=== PATIENT | male | born 1985 | race Caucasian/White ===

== ENCOUNTER 2018-01-30 13:09 | Inpatient (IN) | payer OTHER ==
--- NOTE | 2018-01-30 13:54 | ED ---
General Adult HPI - General Chief complaint: Psychiatric Symptoms Stated complaint: Mental health Time Seen by Provider: 01/30/18 13:10 Source: patient, RN notes reviewed Mode of arrival: ambulatory Limitations: no limitations - History of Present Illness Initial comments: This is a 32-year-old male who presents to the emergency department in the custody of police. Patient was petition by [facility] the [facility] and sent to the emergency department for further evaluation. Patient states she's not homicidal or suicidal. Patient states she doesn't know why is here. Patient does admit to hearing voices but he does not the voices say. Patient denies any visual hallucinations. Patient states he has been standing around noon in the cell and not eating but he doesn't know why. Patient does not know why he is in [facility]. Patient states she's been diagnosed with schizophrenia and bipolar but is never followed up to take any medications. Patient denies any recent drug use. When I asked the patient why he is in the emergency department patient states he is here to get his handcuffs off. Patient denies any physical complaints. - Related Data Home Medications Medication Instructions Recorded Confirmed No Known Home Medications 01/30/18 01/30/18 Allergies Allergy/AdvReac Type Severity Reaction Status Date / Time No Known Allergies Allergy Verified 01/30/18 14:21 Review of Systems ROS Statement: Those systems with pertinent positive or pertinent negative responses have been documented in the HPI. ROS Other: All systems not noted in ROS Statement are negative. Past Medical History Past Medical History: No Reported History History of Any Multi-Drug Resistant Organisms: None Reported Past Surgical History: No Surgical Hx Reported Past Psychological History: No Psychological Hx Reported, Bipolar, Schizophrenia Smoking Status: Never smoker Past Alcohol Use History: None Reported Past Drug Use History: Marijuana General Exam - General Exam Comments Initial Comments: GENERAL: Patient is well-developed and well-nourished. Patient is nontoxic and well- hydrated and is in no acute distress. ENT: Neck is soft and supple. No significant lymphadenopathy is noted. Oropharynx is clear. Moist mucous membranes. EYES: The sclera were anicteric and conjunctiva were pink and moist. Extraocular movements were intact and pupils were equal round and reactive to light. Eyelids were unremarkable. PULMONARY: Unlabored respirations. Good breath sounds bilaterally. No audible rales rhonchi or wheezing was noted. CARDIOVASCULAR: There is a regular rate and rhythm without any murmurs gallops or rubs. ABDOMEN: Soft and nontender with normal bowel sounds. SKIN: Skin is clear with no lesions or rashes and otherwise unremarkable. NEUROLOGIC: Patient is alert and oriented 2. Cranial nerves II through XII are grossly intact. Motor and sensory are also intact. Normal speech, volume and content. Symmetrical smile. MUSCULOSKELETAL: Normal extremities with adequate strength and full range of motion. No lower extremity swelling or edema. No calf tenderness. LYMPHATICS: No significant lymphadenopathy is noted PSYCHIATRIC: Patient states he hears voices but he doesn't with her saying. Patient denies suicidal or homicidal ideations. Patient states he has been standing running a cell make it but doesn't apply. Patient states he also has not been eating and he doesn't know why. Patient does know why is here. Patient states he doesn't otherwise in [facility]. Limitations: no limitations Course Vital Signs 01/30/18 13:16 Temperature 98.3 F Pulse Rate 83 Respiratory 18 Rate Blood Pressure 160/83 O2 Sat by Pulse 100 Oximetry Medical Decision Making - Medical Decision Making I filled out a clinical certification for the patient's admission. Disposition Clinical Impression: Acute psychosis Disposition: TRANSFER TO PSYCH HOSP/UNIT Referrals: None,Stated [Primary Care Provider] - 1-2 days Time of Disposition: 16:58
[2018-01-30 23:26] LABS: Amphetamine Screen,Urine Not Detected (NotDetected); Barbiturate Screen,Urine Not Detected (NotDetected); Benzodiazepines Screen,Urine Not Detected (NotDetected); Cocaine Screen,Urine Not Detected (NotDetected); Methadone Screen, Urine Not Detected (NotDetected); Opiate Screen,Urine Not Detected (NotDetected); Oxycodone Screen, Urine Not Detected (NotDetected); Phencyclidine Screen,Urine Not Detected (NotDetected); Tricyclic Antidepressant,Urine Not Detected (NotDetected); Urn Cannabinoid Scrn Not Detected (NotDetected)
[2018-01-31] MEDS ORDERED: LORazepam 2 MG/ML INJ IM STA (11:45)
[2018-01-31] MEDS ORDERED: ZIPRASIDONE 20 MG VIAL IM STA (12:05)
[2018-01-31] MEDS ORDERED: MAGNESIUM HYDROXIDE 2,400 MG/10 ML CUP PO PRN (13:00)
[2018-01-31] MEDS ORDERED: MAG HYDROX/AL HYDROX/SIMETH 30 ML CUP PO PRN (13:00)
[2018-01-31] MEDS ORDERED: ACETAMINOPHEN TAB 325 MG TAB PO PRN (13:00)
[2018-01-31] MEDS ORDERED: HALOPERIDOL LACTATE 5 MG/ML 1 ML VIAL IM PRN (13:04)
[2018-01-31] MEDS ORDERED: LORazepam 2 MG/ML INJ IM PRN (13:07)
[2018-01-31] MEDS: NICOTINE 14MG/24HR PATCH TRANSDERM SCH (14:01)
[2018-02-01] MEDS: NICOTINE 14MG/24HR PATCH TRANSDERM SCH (09:25)
--- NOTE | 2018-02-01 11:01 | P.PN ---
Progress Note - Text Progress Note Date: 02/01/18 Patient was attempted to be seen yesterday and today. Patient was highly combative in the Emergency Department and required anti-psychotics and sedatives. As per nursing reports, patient was combative and armando towards staff this morning, requiring to be placed back on sedatives and anti- psychotics. He was unable to be seen at that time due to his mentation. Nursing staff has been advised to call us back when the patient is more alert and oriented so we can re-attempt to see him.
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
[2018-02-01] MEDS: HALOPERIDOL 5 MG TAB PO PRN ×2 (13:37→19:51)
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
[2018-02-01] MEDS: LORazepam 1 MG TAB PO PRN (19:51)
[2018-02-02] MEDS: NICOTINE 14MG/24HR PATCH TRANSDERM SCH (07:49)
[2018-02-02] MEDS: HALOPERIDOL 5 MG TAB PO PRN ×2 (07:50→21:26)
[2018-02-02] MEDS: LORazepam 1 MG TAB PO PRN ×2 (07:50→21:26)
[2018-02-02] MEDS: BENZTROPINE MESYLATE 1 MG TAB PO PRN (07:50)
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
[2018-02-02 11:23] LABS: Basophils # (A) 0.1 k/uL (0-0.2); Basophils % (A) 1 %; Eosinophils # (A) 0.1 k/uL (0-0.7); Eosinophils % (A) 2 %; HCT 46.2 % (39.0-53.0); HGB 15.1 gm/dL (13.0-17.5); Lymphocytes # (A) 1.6 k/uL (1.0-4.8); Lymphocytes % (A) 30 %; MCH 29.2 pg (25.0-35.0); MCHC 32.6 g/dL (31.0-37.0); MCV 89.4 fL (80.0-100.0); Monocytes # (A) 0.4 k/uL (0-1.0); Monocytes % (A) 8 %; Neutrophils # (A) 2.9 k/uL (1.3-7.7); Neutrophils % (A) 57 %; Platelet Count 153 k/uL (150-450); RBC 5.17 m/uL (4.30-5.90); RDW 12.1 % (11.5-15.5); WBC 5.2 k/uL (3.8-10.6)
[2018-02-02 11:48] LABS: ALT 26 U/L (21-72); AST 34 U/L (17-59); Albumin 4.4 g/dL (3.5-5.0); Alkaline Phosphatase 58 U/L (38-126); Anion Gap 10 mmol/L; Bilirubin,Unconjugated 1.4 mg/dL (0.0-1.1); Blood Urea Nitrogen 22 mg/dL (9-20); Calcium 9.5 mg/dL (8.4-10.2); Carbon Dioxide 29 mmol/L (22-30); Chloride 101 mmol/L (98-107); Cholesterol 144 mg/dL (<200); Glucose 112 mg/dL (74-99); HDL Cholesterol 28 mg/dL (40-60); LDL Cholesterol,Calculated 101 mg/dL (0-99); Potassium 4.4 mmol/L (3.5-5.1); Sodium 140 mmol/L (137-145); Total Bilirubin 1.4 mg/dL (0.2-1.3); Total Protein 7.1 g/dL (6.3-8.2); Triglycerides 76 mg/dL (<150)
[2018-02-02 20:49] LABS: Hemoglobin A1C 5.3 % (4.0-6.0)
[2018-02-03] MEDS: NICOTINE 14MG/24HR PATCH TRANSDERM SCH (08:25)
[2018-02-03] MEDS: BENZTROPINE MESYLATE 1 MG TAB PO PRN (09:50)
[2018-02-03] MEDS: HALOPERIDOL 5 MG TAB PO PRN ×2 (09:50→20:27)
[2018-02-03] MEDS: LORazepam 1 MG TAB PO PRN ×2 (09:50→20:27)
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
[2018-02-04] MEDS: NICOTINE 14MG/24HR PATCH TRANSDERM SCH (07:51)
[2018-02-04 15:02] LABS: Appearance,Urine Clear (Clear); Bilirubin,Urine Negative (Negative); Blood,Urine Negative (Negative); Color,Urine Light Yellow; Glucose,Urine (UA) Negative (Negative); Ketones,Urine Negative (Negative); Leukocyte Esterase,Urine Negative (Negative); Nitrite,Urine Negative (Negative); Protein,Urine Negative (Negative); Specific Gravity,Urine 1.007 (1.001-1.035); Urobilinogen,Urine <2.0 mg/dL (<2.0)
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
[2018-02-04] MEDS: LORazepam 1 MG TAB PO PRN (21:42)
[2018-02-04] MEDS: HALOPERIDOL 5 MG TAB PO PRN (21:43)
[2018-02-04 21:46] VITALS: RESP 16
[2018-02-05] MEDS: NICOTINE 14MG/24HR PATCH TRANSDERM SCH (08:13)
[2018-02-05] MEDS: LORazepam 1 MG TAB PO PRN (08:42)
[2018-02-05] MEDS: HALOPERIDOL 5 MG TAB PO PRN (08:42)
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
[2018-02-05] MEDS: ARIPiprazole 15 MG TAB PO SCH (12:32)
[2018-02-05] MEDS ORDERED: PALIPERIDONE 6 MG TAB.ER.24 PO SCH (21:00)
[2018-02-06 06:39] VITALS: TEMP 98.1
--- NOTE | 2018-02-06 09:37 | P.PN ---
Progress Note - Text Interval history: The patient is found in the self lounge reading a book. Upon approach he states his mood is okay. He describes his mood is being anxious at times as well. He reports sleeping 8 hours last night. He states he's been eating and attending groups. He is not able to describe the content of any of the groups other than he painted. He reports a conversation with his mother via phone today that was brief. He inquires when he will be discharged. He states he is aware that he will return to retirement. He is not sure what he is charged with when his court date is etc. We reviewed his psychotropic medication. Abilify was initiated yesterday 15 mg daily. He has no questions or concerns regarding that medication. Mental status exam: The patient is a tall male appearing his stated age. Hygiene is adequate he has a disheveled appearance he is dressed in his own clothing. Eye contact is staring in nature. He has very little facial expression. He continues to demonstrate some thought blocking. There are unusual delays with regard to him responding to my questions. He provides ambiguous answers. He is reporting no thoughts of harming himself or others. He is endorsing no auditory or visual hallucinations but states that they were occurring several days ago. He reports feeling safe in the hospital. He endorses no the delusions that we described today. He may be underreporting. He demonstrates no pressured speech. Speech is usually reactive to my questions and not spontaneous. In discussing his legal situation further he demonstrates poverty of thought. He demonstrates no verbal or physical aggressiveness. He demonstrates no involuntary repetitive movements. He is oriented to person place month and year. Plan: The patient will continue on the Abilify 15 mg daily we will consider titrating that further. Continue on the Haldol and Ativan as needed for any agitated behavior. We will continue to provide reality orientation when possible. He is encouraged to continue participating in the milieu and we will continue monitoring him for safety. Vital signs reviewed. We will continue involving his family in treatment and discharge planning as he will allow.
[2018-02-06] MEDS: ARIPiprazole 15 MG TAB PO SCH (10:32)
[2018-02-06] MEDS: NICOTINE 14MG/24HR PATCH TRANSDERM SCH ×2 (10:33→10:54)
[2018-02-07] MEDS: ARIPiprazole 15 MG TAB PO SCH (08:24)
[2018-02-07] MEDS: NICOTINE 14MG/24HR PATCH TRANSDERM SCH (08:45)
--- NOTE | 2018-02-07 09:41 | P.PN ---
Progress Note - Text Interval history: The patient is found in his room he follows me to an interview room. He indicates his mood is "alright". He has no questions or concerns regarding his medication he has been compliant with the Abilify. It does not appear that he required any injections for behavior in the last 24 hours. He indicates he slept well staff recorded 6 hours. Appetite is stable. He reports feeling stressed regarding possible legal charges and is asking us to help provide information. He states he had supportive phone calls from his ex-girlfriend and his mother. Mental status exam: The patient is alert he seated calmly in the chair. He has no spontaneous speech he is becoming more interactive each day. There is still a delay in answering questions but this processing speed seems to be improving. Thought blocking appears to be improving. He is endorsing no auditory or visual hallucinations. He does not appear distracted during the interview. He reports no suicidal or homicidal ideation intent or plan. He demonstrates no verbal or physical aggressiveness. With use of humor he demonstrates brief smiling but otherwise maintains a bland affect. He demonstrates no involuntary repetitive movements. Plan: The patient will continue on the Abilify I will titrate the dose to 20 mg daily. He is demonstrating clinical improvement but would benefit from further hospitalization to approximate to his baseline. We discussed some of his past history again and he does recall having auditory hallucinations at least once at age 21. He does not recall any family history of psychosis. Vital signs reviewed. We will continue to monitor him for safety and encourage his participation in the milieu.
[2018-02-08] MEDS: NICOTINE 14MG/24HR PATCH TRANSDERM SCH (08:36)
--- NOTE | 2018-02-08 09:08 | P.PN ---
Progress Note - Text Interval history: The patient is found in the hallway he follows me to an interview room. He indicates that his mood is okay. He describes feelings of anxiety around others and especially in thinking about his current legal situation. He states he slept last night appetite stable he has been showering. He states in the recent past he notices that his baseline seems to be lower than what previously was. We discussed the several changes he's made occupationally and the termination of the relationship with his girlfriend. He continues to state goes her right decisions for him. 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 He is reporting no auditory or visual hallucinations. He does still feel that there is some confusion at times. He has no questions or concerns regarding the Abilify he is perceiving no side effect. Mental status exam: The patient is alert he is dressed in a T-shirt and sweatpants. He has just showered his hair is disheveled. Eye contact is staring in nature. He is beginning to demonstrate more range of affect. He indicates feeling anxious at times. Thought blocking still present but improving. The delays in responding to questions are reducing. He still seems to lack some insight into his current situation and his recent decisions. Judgment on the unit has improved as he is taking medication and demonstrating no aggressive behavior. He demonstrates no verbal or physical aggressiveness during this session. He demonstrates no involuntary repetitive movements. For the most part he responds to questions asked not having much spontaneous speech. Plan: The patient is slowly improving. I do not feel that he is yet at his baseline. He is anticipating visits from his family over the weekend and we will look further input regarding his status at the time. The Abilify was just titrated to 20 mg today. We will allow that dose to demonstrate further efficacy. He is encouraged to continue participating in the milieu. Depending on his progress moving forward he may be appropriate for discharge as soon as Monday.
[2018-02-09 06:38] VITALS: BP 137/72; PULSE 72
--- NOTE | 2018-02-09 11:06 | P.PN ---
Progress Note - Text Interval history: The patient is found in the hallway he follows me to an interview room. He reports his moods are okay. He continues to speak with family via phone and finds that supportive he anticipates their visit over the weekend. He has no questions or concerns regarding the Abilify. He endorses no side effect. He has been attending groups he has been attending to his ADLs. Mental status exam: The patient is alert he is mildly disheveled is dressed in his own clothing hygiene is adequate. Eye contact is staring in nature. Again he slowly is demonstrating improved expression of affect. He is slowly becoming more interactive. He reports no suicidal or homicidal ideation intent or plan he is reporting no auditory or visual hallucinations or any specific delusions. He demonstrates no involuntary repetitive movements he demonstrates no verbal or physical aggressiveness. Insight and judgment slowly improving. He does still demonstrate a delay in answering questions at times. Plan: The patient is slowly clinically improving. We will continue his Abilify at its current dose. We will continue to assess him for safety. I anticipate discharging him Monday if appropriate.
--- NOTE | 2018-02-10 08:26 | P.PN ---
Progress Note - Text Interval history: The patient is found in the hallway he follows me to an interview room. He indicates his mood is good. He is looking forward to a visit from family this evening. Sleep appetite and energy are stable. He feels his thinking is becoming more clear each day. He has no questions or concerns regarding the Abilify. He indicates having no side effects from it. He has been participating in groups have been no behavioral disturbances. Mental status exam: The patient is alert he is dressed in his own clothing hygiene grooming improved. Eye contact is good speech is fluent spontaneous nonpressured. He reports no suicidal or homicidal ideation intent or plan. He reports no auditory or visual hallucinations or any specific delusions. Evidence of thought blocking is fading. He is more interactive in the conversation and there is almost no delay in providing responses to questions. He demonstrates no involuntary repetitive movements. He demonstrates no verbal or physical aggressiveness. Insight and judgment improving. Plan: The patient is clinically stabilizing we will continue to monitor him for safety. He will continue on the Abilify is written. I anticipate he will be appropriate for discharge as soon as Monday.
[2018-02-10 12:35] VITALS: BMI 23.3
--- NOTE | 2018-02-11 07:50 | P.PN ---
Progress Note - Text Interval history: The patient is found in his room he follows me to an interview room. He indicates he is doing fine. He is looking forward to being discharged. He reports he is attending groups. He indicates he sleeping at night staff recorded he slept at least 6 hours. Appetite is stable. He's been maintaining his own ADLs. He has no questions regarding the Abilify he is reporting no side effect. He had a visit from his parents last evening that he felt was supportive. Mental status exam: The patient is alert he is dressed in his own clothing hygiene is adequate grooming is adequate. Eye contact is good speech is fluent nonpressured. He continues to respond to questions with not as much spontaneous speech. He is demonstrating an improved range of affect during the conversation he is able to respond to humor probes as expected. He reports no suicidal or homicidal ideation intent or plan. He reports no auditory or visual hallucinations or any specific delusions. He does not appear distracted during the interview. Insight and judgment are improving. He demonstrates no involuntary repetitive movements. He demonstrates no verbal or physical aggressiveness. Plan: The patient will continue on the Abilify 20 mg daily. He is clinically stabilizing. We will anticipate discharging him tomorrow. Vital signs reviewed. He is encouraged to continue fully participating in the milieu.
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
== END 2018-02-12 15:14 | DRG 885 ==
LOC: EC 13:09 → 3MHU 01-31 12:53
PROVIDERS: ADMIT Psychiatry & Neurology Psychiatry; ATTEND Psychiatry & Neurology Psychiatry
DX: F20.9 Schizophrenia, unspecified (principal); F41.9 Anxiety disorder, unspecified; Z79.899 Other long term (current) drug therapy; Z91.5 Personal history of self-harm; Z81.8 Family history of other mental and behavioral disorders; Z81.1 Family history of alcohol abuse and dependence; F10.10 Alcohol abuse, uncomplicated
CPT/HCPCS: 80053; 80061; 80306; 81003; 82075; 82248; 83036; 84443; 85025; 99285

== ENCOUNTER 2018-04-25 12:50 | Emergency (ER) | payer OTHER ==
[2018-04-25 13:00] VITALS: TEMP 99
--- NOTE | 2018-04-25 13:10 | ED ---
General Adult HPI - General Chief complaint: Psychiatric Symptoms Stated complaint: Mental Health Court Ordered Time Seen by Provider: 04/25/18 13:02 Source: patient, police Mode of arrival: ambulatory Limitations: no limitations - History of Present Illness Initial comments: Dictation was produced using [employer] dictation software. please excuse any grammatical, word or spelling errors. Chief Complaint: 32-year-old male brought in by law enforcement for admission to [facility]. History of Present Illness: Patient is 32-year-old male. He states he's been hearing voices. Patient does not remember what the voices have been telling him. Since within the last 90 days his symptoms began. There is a court order that was placed for patient admitted to [facility]. Spelled by law enforcement to the emergency department for medical clearance first. Patient has no other complaints at this time. Denies any suicidal or homicidal ideation. The ROS documented in this emergency department record has been reviewed and confirmed by me. Those systems with pertinent positive or negative responses have been documented in the HPI. All other systems are other negative and/or noncontributory. PHYSICAL EXAM: General Impression: Alert and oriented x3, not in acute distress HEENT: Normocephalic atraumatic, extra-ocular movements intact, pupils equal and reactive to light bilaterally, mucous membranes moist. Cardiovascular: Heart regular rate and rhythm, S1&S2 audible, no murmurs, rubs or gallops Chest: Lungs clear to auscultation bilaterally, no rhonchi, no wheeze, no rales Abdomen: Bowel sounds present, abdomen soft, non-tender, non-distended, no organomegaly Musculoskeletal: Pulses present and equal in all extremities, no peripheral edema Motor: Power 5/5 bilaterally, no focal deficits noted Neurological: CN II-XII grossly intact, no focal motor or sensory deficits noted Skin: Intact with no visualized rashes Psych: Flattened affect ED course: 32-year-old male presents with psychotic behavior. Vital signs upon arrival are within acceptable limits. Patient has no complaints at this time. Physical examination is benign. Patient medically cleared for EPS evaluation. EPS clear patient for disposition back to [facility] facility. Patient clear for discharge back to [facility] facility. She has stable psychiatric symptoms. - Related Data Home Medications Medication Instructions Recorded Confirmed Escitalopram Oxalate [Lexapro] 10 mg PO DAILY 04/25/18 04/25/18 [place] Carbonate 600 mg PO HS 04/25/18 04/25/18 OLANZapine [ZyPREXA] 20 mg PO HS 04/25/18 04/25/18 Previous Rx's Medication Instructions Recorded ARIPiprazole [Abilify] 20 mg PO DAILY #30 tab 02/12/18 Allergies Allergy/AdvReac Type Severity Reaction Status Date / Time No Known Allergies Allergy Verified 04/25/18 13:24 Review of Systems ROS Statement: Those systems with pertinent positive or pertinent negative responses have been documented in the HPI. ROS Other: All systems not noted in ROS Statement are negative. Past Medical History Past Medical History: No Reported History History of Any Multi-Drug Resistant Organisms: None Reported Past Surgical History: Joint Replacement Additional Past Surgical History / Comment(s): Pt stated that he had surgery on his right knee in the past Past Anesthesia/Blood Transfusion Reactions: No Reported Reaction Past Psychological History: Bipolar, Schizophrenia Smoking Status: Never smoker Past Alcohol Use History: None Reported Past Drug Use History: Marijuana General Exam Limitations: no limitations Course Vital Signs 04/25/18 12:58 Temperature 99 F Pulse Rate 95 Respiratory 18 Rate Blood Pressure 123/83 O2 Sat by Pulse 100 Oximetry Disposition Clinical Impression: Psychosis Disposition: OTHER INSTITUTION NOT DEFINED Condition: Good Instructions (If sedation given, give patient instructions): Psychotic Disorder (ED) Is patient prescribed a controlled substance at d/c from ED?: No Referrals: None,Stated [Primary Care Provider] - 1-2 days Time of Disposition: 14:31 - Out of Hospital Transfer - Req. Specs Out of Hospital Transfer - Requested Specifics: Other Emergency Center (back to longterm)
[2018-04-25 14:55] VITALS: BP 137/87; PULSE 78; RESP 16
== END 2018-04-25 15:05 | disposition home or self-care (01) ==
LOC: EC 12:50
DX: F29 Unspecified psychosis not due to a substance or known physiological condition (principal); F20.9 Schizophrenia, unspecified; F31.9 Bipolar disorder, unspecified; Z79.899 Other long term (current) drug therapy
CPT/HCPCS: 99284